=== PATIENT | male | born 1945 | race Caucasian/White ===

== ENCOUNTER 2018-11-10 14:51 | Inpatient (IN) ==
[2018-11-10] MEDS ORDERED: NOREPINEPHRINE 4 MG/4 ML VIAL IV ONE (14:59)
[2018-11-10] MEDS ORDERED: ENOXAPARIN 100 MG/ML SYRINGE SUBCUT STA (15:05)
[2018-11-10] MEDS ORDERED: ASPIRIN 325 MG TABLET PO STA (15:05)
[2018-11-10 15:20] LABS: Eosinophils # 0.1 10*3/uL (0.0-0.87); Eosinophils % 2.5 % (0.00-10.9); Hematocrit 43.1 VOL% (42.0-52.0); Hemoglobin 14.1 GM/DL (14.0-18.0); Immature Granulocytes % 5.8 %; Immature Granulocytes Absolute 0.23 #; Lymphocytes # 2.5 10*3/uL (1.4-4.0); Lymphocytes % 61.9 % (21.2-54.2); Mean Corpuscular HGB Conc 32.7 GM/DL (32-36); Mean Corpuscular Hemoglobin 32 PG (27-34); Mean Corpuscular Volume 98.2 FL (87-102); Mean Platelet Volume 11.2 FL (9.6-12.0); Monocytes # 0.4 10*3/uL (0.11-0.8); Monocytes % 9.3 % (1.7-12.7); NRBC # 0.06 10*3/uL; Neutrophils # 0.8 10*3/uL (1.4-7.4); Neutrophils % 19.5 % (38.7-73.9); Platelet Count 101 T/CUMM (130-400); Red Blood Count 4.39 MC/CUMM (3.8-5.5); Red Cell Distribution Width 13.3 % (9.3-17.3)
[2018-11-10] MEDS ORDERED: MAGNESIUM SULF RIDER 4 GM in PREMIX 1 EACH IV PRN (15:27)
[2018-11-10] MEDS ORDERED: POTASSIUM CHLORIDE 20 MEQ/15 ML UDCUP PER TUBE PRN (15:27)
[2018-11-10] MEDS ORDERED: MAGNESIUM SULF RIDER 2 GM in PREMIX 1 EACH IV PRN (15:27)
[2018-11-10 15:30] LABS: Albumin 2.9 G/DL (3.4-5.0); Bilirubin,Total 0.7 MG/DL (0.2-1.0); Calcium 7.3 MG/DL (8.5-10.1); Osmolality,Calculated 292.7 MOS/KG (273-304); Total Protein 5.5 G/DL (6.4-8.3)
[2018-11-10 15:31] LABS: Partial Thromboplastin Time 36.4 SECS (0-40)
[2018-11-10 15:32] LABS: Potassium 2.3 MMOL/L (3.5-5.1)
[2018-11-10] MEDS ORDERED: POTASSIUM CHLORIDE RIDER 10 MEQ in PREMIX 1 EACH IV PRN (15:33)
[2018-11-10 15:36] LABS: INR 2.2
[2018-11-10] MEDS ORDERED: POTASSIUM CHLORIDE RIDER 100 ML IV ONE (15:36)
[2018-11-10] MEDS ORDERED: SODIUM BICARBONATE 2.4 MEQ/5 ML VIAL ONE (15:37)
[2018-11-10] MEDS ORDERED: LIDOCAINE 1% 20 ML VIAL ONE (15:37)
[2018-11-10] MEDS ORDERED: HEPARIN/NACL 0.9% 2 UNITS/ML 1,000 ML IV ONE (15:37)
[2018-11-10 15:53] LABS: PT Patient Result 23.7 SECS
[2018-11-10] MEDS ORDERED: EPINEPHrine 1 MG/ML VIAL ONE (15:54)
[2018-11-10 16:06] LABS: Apearance,Urine CLEAR (Clear); Bilirubin,Urine Negative (Negative); Blood, Urine Small mg/dL (Negative); Glucose,Urine (UA) Negative (Negative); Ketones,Urine Negative (Negative); Mucus,Urine Occasional /LPF (Occasional); Nitrite,Urine Negative (Negative); Protein,Urine 100 MG/DL; RBC,Urine 9 /HPF (0-4); Squamous Epithelial Cell,Urine Occasional /HPF (0-10); Urine Color Yellow (Yellow); Urine Specific Gravity 1.013 (1.001-1.035)
[2018-11-10 16:13] LABS: Eosinophils 4 % (0-10); Lymphocytes 59 % (20-55); Macrocytosis 1+; Nucleated Red Blood Cells 1 (0-5); Platelet Estimate Adequate; Segmented Neutrophils 23 % (50-85); Total Cells Counted 100
[2018-11-10 16:37] LABS: ABG Base Excess -6.7 MMOL/L (-2.5-2.5); ABG HCO3 19.1 MMOL/L (20-26); ABG Oxygen Saturation 97.8 % (95-100); ABG PCO2 51.7 MM HG (35-48); ABG PH 7.231 (7.35-7.45); ABG TCO2 19.2 MMOL/L (23-27)
[2018-11-10] MEDS ORDERED: ENOXAPARIN 40 MG/0.4 ML SYRINGE SUBCUT SCH (17:30)
[2018-11-10] MEDS ORDERED: NOREPINEPHRINE 8 MG in SODIUM CHLORIDE 0.9% 242 ML IV PRN (17:36)
[2018-11-10] MEDS ORDERED: MIDAZOLAM 100 MG in SODIUM CHLORIDE 0.9% 80 ML IV PRN (17:40)
[2018-11-10] MEDS ORDERED: fentaNYL INJ 1,250 MCG in SODIUM CHLORIDE 0.9% 225 ML IV PRN (17:40)
[2018-11-10] MEDS ORDERED: MEPERIDINE 50 MG/1 ML VIAL IV PRN (17:41)
[2018-11-10] MEDS ORDERED: DEXTROSE 50% 25 GM/50 ML SYRINGE IV PRN (17:43)
[2018-11-10] MEDS ORDERED: GLUCAGON 1 MG VIAL IM PRN (17:43)
[2018-11-10] MEDS ORDERED: ACETAMINOPHEN 325 MG/10.15 ML UDCUP PO PRN (17:44)
[2018-11-10] MEDS: PHENYLEPHRINE DRIP 40 MG/250 ML PREMIX IV PRN ×2 (17:45→21:37)
[2018-11-10] MEDS ORDERED: PHENYLEPHRINE DRIP 40 MG/250 ML PREMIX IV ONE (17:49)
[2018-11-10] MEDS ORDERED: HEPARIN/NACL 0.9% 2 UNITS/ML 500 ML IV ONE (17:53)
[2018-11-10] MEDS ORDERED: CISATRACURIUM 200 MG in SODIUM CHLORIDE 0.9% 180 ML IV SCH (18:00)
[2018-11-10] MEDS ORDERED: PROPOFOL 1,000 MG/100 ML BOTTLE IV SCH (18:00)
[2018-11-10 18:06] LABS: Basophils # 0.1 10*3/uL (0.0-0.2); Basophils % 0.6 % (0.0-0.8); Eosinophils # 0.2 10*3/uL (0.0-0.87); Eosinophils % 1.6 % (0.00-10.9); Hematocrit 46.9 VOL% (42.0-52.0); Hemoglobin 15.6 GM/DL (14.0-18.0); Immature Granulocytes Absolute 0.19 #; Lymphocytes % 10.1 % (21.2-54.2); Mean Corpuscular HGB Conc 33.3 GM/DL (32-36); Mean Corpuscular Hemoglobin 32 PG (27-34); Mean Corpuscular Volume 96.1 FL (87-102); Mean Platelet Volume 10.9 FL (9.6-12.0); Monocytes # 0.4 10*3/uL (0.11-0.8); Monocytes % 3.8 % (1.7-12.7); Neutrophils # 7.9 10*3/uL (1.4-7.4); Neutrophils % 81.9 % (38.7-73.9); Red Blood Count 4.88 MC/CUMM (3.8-5.5); Red Cell Distribution Width 13.4 % (9.3-17.3)
[2018-11-10 18:14] LABS: Platelet Count 146 T/CUMM (130-400); White Blood Count 9.7 T/CUMM (4-12)
[2018-11-10 18:16] LABS: INR 2.5
[2018-11-10 18:22] LABS: ABG Base Excess -6.2 MMOL/L (-2.5-2.5); ABG HCO3 19.5 MMOL/L (20-26); ABG Oxygen Saturation 99.3 % (95-100); ABG PCO2 31.9 MM HG (35-48); Allen Test Positive; Pt O2 Delivery Device Ventilator
[2018-11-10 18:22] LABS: PT Patient Result 26.5 SECS
[2018-11-10 18:30] LABS: Lactic Acid 6.2 MMOL/L (0.4-2.0)
[2018-11-10 18:39] LABS: CKMB % 6.3 %
[2018-11-10 18:43] LABS: Alanine Aminotransferase 147 U/L (16-61); Albumin 2.7 G/DL (3.4-5.0); Alkaline Phosphatase 111 U/L (45-117); Amylase 170 U/L (25-115); Aspartate Amino Transferase 453 U/L (0-37); Blood Urea Nitrogen 17 MG/DL (7-18); Calcium 6.4 MG/DL (8.5-10.1); Glucose 301 MG/DL (74-106); Osmolality,Calculated 287.7 MOS/KG (273-304); Sodium 138 MMOL/L (136-145); Total Protein 5.2 G/DL (6.4-8.3)
[2018-11-10] MEDS: NOREPINEPHRINE 16 MG in SODIUM CHLORIDE 0.9% 234 ML IV PRN (18:43)
[2018-11-10 18:50] LABS: Troponin I 34.2 NG/ML (0.00-0.045)
[2018-11-10] MEDS: INSULIN REGULAR 100 UNIT/ML IV SCH (19:48)
[2018-11-10] MEDS ORDERED: MAGNESIUM SULF RIDER 1 GM in PREMIX 1 EACH IV ONE (20:00)
[2018-11-10] MEDS ORDERED: INSULIN REGULAR DRIP 100 ML IV PRN (21:29)
[2018-11-11] MEDS: INSULIN REGULAR 100 UNIT/ML IV SCH (00:03)
[2018-11-11 00:17] LABS: INR 2.7
[2018-11-11] MEDS: MINERAL OIL/PETROLATUM OPH OINT 3.5 GM TUBE BOTH EYES SCH ×2 (00:18→09:41)
[2018-11-11 00:21] LABS: PT Patient Result 28.8 SECS
[2018-11-11 00:28] LABS: Calcium 6.1 MG/DL (8.5-10.1); Osmolality,Calculated 297.3 MOS/KG (273-304)
[2018-11-11 00:31] LABS: Lactic Acid 7.5 MMOL/L (0.4-2.0); Potassium 2.5 MMOL/L (3.5-5.1)
[2018-11-11] MEDS: PHENYLEPHRINE DRIP 40 MG/250 ML PREMIX IV PRN ×5 (00:40→09:39)
[2018-11-11] MEDS: POTASSIUM CHLORIDE RIDER 20 MEQ in PREMIX 1 EACH IV PRN ×2 (00:41→07:34)
[2018-11-11 02:05] LABS: Basophils # 0.1 10*3/uL (0.0-0.2); Basophils % 0.5 % (0.0-0.8); Eosinophils # 0.1 10*3/uL (0.0-0.87); Eosinophils % 0.5 % (0.00-10.9); Hematocrit 50.2 VOL% (42.0-52.0); Hemoglobin 16.8 GM/DL (14.0-18.0); Immature Granulocytes % 0.7 %; Immature Granulocytes Absolute 0.12 #; Lymphocytes # 0.7 10*3/uL (1.4-4.0); Lymphocytes % 4.3 % (21.2-54.2); Mean Corpuscular HGB Conc 33.5 GM/DL (32-36); Mean Corpuscular Hemoglobin 32 PG (27-34); Mean Corpuscular Volume 96.9 FL (87-102); Mean Platelet Volume 11.5 FL (9.6-12.0); Monocytes # 0.9 10*3/uL (0.11-0.8); Monocytes % 5.2 % (1.7-12.7); Neutrophils # 15.2 10*3/uL (1.4-7.4); Neutrophils % 88.8 % (38.7-73.9); Platelet Count 154 T/CUMM (130-400); Red Blood Count 5.18 MC/CUMM (3.8-5.5); Red Cell Distribution Width 13.5 % (9.3-17.3); White Blood Count 17.1 T/CUMM (4-12)
[2018-11-11 04:28] LABS: ABG Base Excess -13.9 MMOL/L (-2.5-2.5); ABG HCO3 14.3 MMOL/L (20-26); ABG Oxygen Saturation 98.6 % (95-100); ABG PCO2 29.8 MM HG (35-48); ABG PH 7.239 (7.35-7.45); ABG TCO2 10.8 MMOL/L (23-27)
[2018-11-11] MEDS ORDERED: EPINEPHrine 1 MG/ML VIAL ONE (05:09)
[2018-11-11 05:49] LABS: Anisocytosis Slight; Band Neutrophils 18 % (0-10); Eosinophils 1 % (0-10); Lymphocytes 3 % (20-55); Macrocytosis Slight; Metamyelocytes 2 %; Platelet Estimate Adequate; Segmented Neutrophils 71 % (50-85); Total Cells Counted 100
[2018-11-11 06:53] LABS: Basophils # 0.1 10*3/uL (0.0-0.2); Basophils % 0.6 % (0.0-0.8); Eosinophils # 0.1 10*3/uL (0.0-0.87); Eosinophils % 0.6 % (0.00-10.9); Hematocrit 51.7 VOL% (42.0-52.0); Immature Granulocytes % 0.3 %; Immature Granulocytes Absolute 0.04 #; Lymphocytes # 0.9 10*3/uL (1.4-4.0); Lymphocytes % 6.9 % (21.2-54.2); Mean Corpuscular HGB Conc 32.9 GM/DL (32-36); Mean Corpuscular Hemoglobin 32 PG (27-34); Mean Corpuscular Volume 96.6 FL (87-102); Mean Platelet Volume 11.3 FL (9.6-12.0); Monocytes # 0.5 10*3/uL (0.11-0.8); Neutrophils # 10.8 10*3/uL (1.4-7.4); Neutrophils % 87.6 % (38.7-73.9); Platelet Count 136 T/CUMM (130-400); Red Blood Count 5.35 MC/CUMM (3.8-5.5); Red Cell Distribution Width 13.6 % (9.3-17.3); White Blood Count 12.4 T/CUMM (4-12)
[2018-11-11 07:16] LABS: INR 2.5; Partial Thromboplastin Time 34.8 SECS (0-40)
[2018-11-11 07:17] LABS: Lactic Acid 5.7 MMOL/L (0.4-2.0)
[2018-11-11 07:20] LABS: PT Patient Result 27.2 SECS
[2018-11-11 07:34] LABS: Blood Urea Nitrogen 27 MG/DL (7-18); CKMB % 8.3 %; Calcium 6.6 MG/DL (8.5-10.1); Glucose 123 MG/DL (74-106); Osmolality,Calculated 295.6 MOS/KG (273-304); Sodium 146 MMOL/L (136-145)
[2018-11-11 07:35] LABS: Potassium 1.9 MMOL/L (3.5-5.1)
[2018-11-11 07:36] LABS: Troponin I > 200.000 NG/ML (0.00-0.045)
[2018-11-11 07:50] LABS: Band Neutrophils 8 % (0-10); Eosinophils 2 % (0-10); Lymphocytes 10 % (20-55); Metamyelocytes 1 %; Segmented Neutrophils 73 % (50-85); Total Cells Counted 100
[2018-11-11 07:51] LABS: Macrocytosis Slight
[2018-11-11 07:52] LABS: Platelet Estimate Adequate
[2018-11-11] MEDS ORDERED: SODIUM BICARB INJ 100 MEQ in STERILE WATER INJ 1,000 ML IV SCH (08:00)
[2018-11-11] MEDS ORDERED: MAGNESIUM SULF RIDER 1 GM in PREMIX 1 EACH IV ONE (08:00)
[2018-11-11] MEDS ORDERED: PANTOPRAZOLE 40 MG VIAL IV SCH (09:00)
[2018-11-11] MEDS: NOREPINEPHRINE 16 MG in SODIUM CHLORIDE 0.9% 234 ML IV PRN (09:33)
[2018-11-11 11:33] VITALS: BP 57/47
== END 2018-11-11 10:42 | disposition expired | DRG 270 ==
LOC: N.ED 14:51 → N.EDINP 15:27 → EDBD 15:27 → N.ICU 16:00
PROVIDERS: ADMIT Internal Medicine Cardiovascular Disease; ATTEND Internal Medicine Cardiovascular Disease